=== PATIENT | female | born 1955 | race Two or more races ===

== ENCOUNTER 2025-04-27 07:25 | Day surgery (SDC) | payer MEDICARE, MEDICAID, SELFPAY ==
[2025-04-26 14:33] VITALS: BMI 30.2
[2025-04-27] VITALS (10 sets, daily range): BP systolic 114–144; BP diastolic 60–84; PULSE 55–78; RESP 12–20; TEMP 36.2; O2SAT 94–100; BMI 31.1
[2025-04-27] MEDS: RINGERS LACTATED 1000 ML 1,000 ML 125 ML IV (09:24)
[2025-04-27] MEDS: fentaNYL CIT INJ 50 mCg/ML AMP 2ML (ASD USE ONLY) IVP (09:26)
[2025-04-27] MEDS: MIDAZOLAM INJ 1 MG/ML VIAL 2 ML (ASD USE ONLY) 2 MG IVP (09:33)
== END 2025-04-27 11:10 | disposition home or self-care (01) ==
PROVIDERS: PCP Internal Medicine; Referring Provider Internal Medicine Gastroenterology; Visit Provider Internal Medicine Gastroenterology
PROC: 0DBE8ZX Excision of Large Intestine, Via Natural or Artificial Opening Endoscopic, Diagnostic (ICD-10-PCS; CPT 45380; principal; 2025-04-27 09:00)
DX: K64.1 Second degree hemorrhoids (principal); K52.9 Noninfective gastroenteritis and colitis, unspecified; I10 Essential (primary) hypertension
CPT/HCPCS: 45380; A4649; J2250; J3010; J7120